=== PATIENT | female | born 1930 ===

== ENCOUNTER 2019-12-10 03:25 | Observation (INO) ==
[2019-12-10] MEDS ORDERED: Naloxone 0.4 MG/ML INJ IVP PRN (05:10)
[2019-12-10] MEDS: Famotidine 20 MG TABLET PO SCH (20:28)
[2019-12-10] MEDS: lisinopriL 5 MG TABLET PO SCH (20:29)
[2019-12-10] MEDS: *HR* OxyCODONE/APAP 7.5/325 TABLET PO PRN (20:29)
[2019-12-11 00:56] LABS: Basophils % 0.2 %; Eosinophils # 0.1 K/mcL (0.0-0.6); Eosinophils % 1.1 %; Hematocrit 37.6 % (35.3-44.9); Immature Granulocytes % 0.2 % (0-4); Lymphocytes # 3.2 K/mcL (0.6-4.6); Lymphocytes % 34.2 %; Mean Corpuscular HGB Conc 31.9 g/dL (31.6-35.5); Mean Corpuscular Hemoglobin 29.5 pg (28.0-33.3); Mean Corpuscular Volume 92.4 fL (83.0-100.0); Mean Platelet Volume 8.6 fL (9.4-12.4); Monocytes # 0.8 K/mcL (0.0-1.3); Monocytes % 8.3 %; Neutrophils # 5.2 K/mcL (1.6-8.9); Platelet Count 151 K/mcL (140-400); Red Blood Count 4.07 M/mcL (3.82-4.97); Red Cell Distribution Width 11.9 % (11.5-14.5); White Blood Count 9.3 K/mcL (4.3-11.1)
[2019-12-11 01:16] LABS: Calcium 9.2 mg/dL (8.6-10.3); Potassium 4.4 mEq/L (3.5-5.1)
[2019-12-11] MEDS: *HR* OxyCODONE/APAP 7.5/325 TABLET PO PRN ×2 (04:13→15:15)
[2019-12-11] MEDS ORDERED: Loratadine 10 MG TABLET PO SCH (09:00)
[2019-12-11] MEDS ORDERED: Verapamil ER (24 HR) 240 MG TABLET.ER PO SCH (09:00)
[2019-12-11] MEDS: Famotidine 20 MG TABLET PO SCH (09:09)
[2019-12-11] MEDS: lisinopriL 5 MG TABLET PO SCH (09:10)
[2019-12-11 15:49] VITALS: BP 116/56
[2019-12-12] MEDS ORDERED: Famotidine 20 MG TABLET PO SCH (09:00)
== END 2019-12-11 17:51 | disposition home health service (06) ==
LOC: 3BNU
PROVIDERS: ADMIT Internal Medicine; ATTEND Internal Medicine

== ENCOUNTER 2020-05-27 09:17 | Inpatient (IN) ==
[2020-05-27] MEDS ORDERED: *HR* HYDROmorphone (PF) 1 MG/ML SYRINGE IVP ONE (09:50)
[2020-05-27] MEDS ORDERED: 0.9 % Sodium Chloride 500 ML IV ONE (09:52)
[2020-05-27 10:33] LABS: Basophils % 0.3 %; Eosinophils # 0.1 K/mcL (0.0-0.6); Eosinophils % 0.7 %; Hematocrit 37.2 % (35.3-44.9); Hemoglobin 11.8 g/dL (11.5-15.4); Immature Granulocytes % 0.2 % (0-4); Lymphocytes # 2.3 K/mcL (0.6-4.6); Lymphocytes % 25.2 %; Mean Corpuscular HGB Conc 31.7 g/dL (31.6-35.5); Mean Corpuscular Hemoglobin 29.7 pg (28.0-33.3); Mean Corpuscular Volume 93.7 fL (83.0-100.0); Mean Platelet Volume 9.1 fL (9.4-12.4); Monocytes # 0.7 K/mcL (0.0-1.3); Monocytes % 7.6 %; Neutrophils # 5.9 K/mcL (1.6-8.9); Platelet Count 143 K/mcL (140-400); Prothrombin Time 11.1 Seconds (9.4-12.1); Red Blood Count 3.97 M/mcL (3.82-4.97); Red Cell Distribution Width 12.4 % (11.5-14.5)
[2020-05-27 10:36] LABS: Activated Partial Thrombo Time 28.5 Seconds (26.0-36.0)
[2020-05-27 10:53] LABS: Albumin 4.4 g/dL (3.5-5.7); Albumin/Globulin Ratio 1.8 (1.1-2.2); Bilirubin,Total 0.7 mg/dL (0.3-1.0); Calcium 9.6 mg/dL (8.6-10.3); Globulin 2.4 g/dL (2.4-3.5); Potassium 4.6 mEq/L (3.5-5.1); Total Protein 6.8 g/dL (6.4-8.9); Troponin I 0.04 ng/mL (< 0.04)
[2020-05-27] MEDS ORDERED: Nitroglycerin 1 INCH/GM PACKET TP ONE (10:57)
[2020-05-27 11:23] LABS: Bacteria,Urine Many per hpf (None-Few); Bilirubin,Urine Negative (Negative); Blood,Urine Trace (Negative); Clarity,Urine Clear (Clear); Color,Urine Light-Yellow (Yellow); Glucose,Urine (UA) Normal (Normal); Hyaline Casts,Urine Few per lpf (None Seen); Ketones,Urine Negative (Negative); Leukocyte Esterase,Urine Trace (Negative); Mucus,Urine Few per lpf (None-Few); Nitrite,Urine Positive (Negative); Protein,Urine Trace mg/dL (Neg-Trace); RBC,Urine 0-3 per hpf (0-3); Specific Gravity,Urine 1.025 (1.010-1.025); Squamous Epithelial Cell,Urine Few per hpf (None-Few); Urobilinogen,Urine Normal (Normal); WBC,Urine 0-3 per hpf (0-3)
[2020-05-27] MEDS: Aspirin 81 MG TAB.CHEW PO SCH (11:42)
[2020-05-27] MEDS ORDERED: Naloxone 0.4 MG/ML INJ IVP PRN (12:52)
[2020-05-27] MEDS ORDERED: Perflutren Lipid Microsphere 1.3 ML in 0.9 % Sodium Chloride 8.7 ML IVP PRN (12:55)
[2020-05-27] MEDS ORDERED: 0.9 % Sodium Chloride 1,000 ML IVC SCH (13:45)
[2020-05-27] MEDS: cefTRIAXone 1,000 MG in Water for inj. (sterile) 10 ML IVP SCH (16:50)
[2020-05-27] MEDS: *HR* Heparin 5,000 UNIT/ML VIAL SQ SCH (16:51)
[2020-05-27] MEDS: *HR* HYDROcodone/Acet 7.5/325 mg TABLET PO PRN (20:42)
[2020-05-27] MEDS: Rivastigmine Tartrate (oral) 1.5 MG CAPSULE PO SCH (20:42)
[2020-05-27] MEDS: lisinopriL 5 MG TABLET PO SCH (20:43)
[2020-05-27] MEDS: Famotidine 20 MG TABLET PO SCH (20:43)
[2020-05-28 03:12] LABS: Calcium 8.7 mg/dL (8.6-10.3); Phosphorous 3.4 mg/dL (2.7-4.5); Potassium 4.6 mEq/L (3.5-5.1)
[2020-05-28] MEDS: *HR* Heparin 5,000 UNIT/ML VIAL SQ SCH ×2 (05:22→17:02)
[2020-05-28] MEDS: *HR* HYDROcodone/Acet 7.5/325 mg TABLET PO PRN ×3 (08:21→23:08)
[2020-05-28] MEDS: Famotidine 20 MG TABLET PO SCH ×2 (08:21→21:39)
[2020-05-28] MEDS: Verapamil ER (24 HR) 240 MG TABLET.ER PO SCH (08:21)
[2020-05-28] MEDS: Aspirin 81 MG TAB.CHEW PO SCH (08:21)
[2020-05-28] MEDS: lisinopriL 5 MG TABLET PO SCH (08:22)
[2020-05-28] MEDS: Rivastigmine Tartrate (oral) 1.5 MG CAPSULE PO SCH ×2 (08:22→21:39)
[2020-05-28] MEDS: Loratadine 10 MG TABLET PO SCH (08:22)
[2020-05-28] MEDS: cefTRIAXone 1,000 MG in Water for inj. (sterile) 10 ML IVP SCH (08:23)
[2020-05-28] MEDS ORDERED: Isovue-370 500 ML BOTTLE IVP ONE (09:21)
[2020-05-28] MEDS ORDERED: 0.9 % Sodium Chloride 1,000 ML IVC SCH (12:30)
[2020-05-29 03:47] LABS: Basophils % 0.6 %; Eosinophils # 0.2 K/mcL (0.0-0.6); Eosinophils % 2.4 %; Hematocrit 32.7 % (35.3-44.9); Hemoglobin 10.4 g/dL (11.5-15.4); Immature Granulocytes % 0.2 % (0-4); Lymphocytes # 2.6 K/mcL (0.6-4.6); Mean Corpuscular HGB Conc 31.8 g/dL (31.6-35.5); Mean Corpuscular Hemoglobin 30.3 pg (28.0-33.3); Mean Corpuscular Volume 95.3 fL (83.0-100.0); Monocytes # 0.5 K/mcL (0.0-1.3); Monocytes % 7.9 %; Neutrophils # 3.2 K/mcL (1.6-8.9); Platelet Count 129 K/mcL (140-400); Red Blood Count 3.43 M/mcL (3.82-4.97); Red Cell Distribution Width 12.3 % (11.5-14.5); Segmented Neutrophils % 48.9 %; White Blood Count 6.6 K/mcL (4.3-11.1)
[2020-05-29 04:05] LABS: Calcium 8.7 mg/dL (8.6-10.3); Potassium 4.7 mEq/L (3.5-5.1)
[2020-05-29] MEDS: *HR* Heparin 5,000 UNIT/ML VIAL SQ SCH ×2 (06:37→16:19)
[2020-05-29] MEDS: Aspirin 81 MG TAB.CHEW PO SCH (08:56)
[2020-05-29] MEDS: Rivastigmine Tartrate (oral) 1.5 MG CAPSULE PO SCH ×2 (08:57→20:30)
[2020-05-29] MEDS: Famotidine 20 MG TABLET PO SCH ×2 (08:57→20:30)
[2020-05-29] MEDS: cefTRIAXone 1,000 MG in Water for inj. (sterile) 10 ML IVP SCH (08:58)
[2020-05-29] MEDS: Loratadine 10 MG TABLET PO SCH (09:02)
[2020-05-29] MEDS: Verapamil ER (24 HR) 240 MG TABLET.ER PO SCH (09:02)
[2020-05-29] MEDS: *HR* HYDROcodone/Acet 7.5/325 mg TABLET PO PRN ×3 (10:04→23:16)
[2020-05-29] MEDS: lisinopriL 5 MG TABLET PO SCH (10:07)
[2020-05-30] MEDS ORDERED: Morphine Sulfate 2 MG/ML SYRINGE IVP ONE (02:17)
[2020-05-30] MEDS: *HR* Heparin 5,000 UNIT/ML VIAL SQ SCH ×2 (04:48→16:27)
[2020-05-30] MEDS: *HR* HYDROcodone/Acet 7.5/325 mg TABLET PO PRN ×2 (05:33→19:32)
[2020-05-30] MEDS: cefTRIAXone 1,000 MG in Water for inj. (sterile) 10 ML IVP SCH (08:29)
[2020-05-30] MEDS: Aspirin 81 MG TAB.CHEW PO SCH (08:30)
[2020-05-30] MEDS: Famotidine 20 MG TABLET PO SCH ×2 (08:30→20:12)
[2020-05-30] MEDS: Rivastigmine Tartrate (oral) 1.5 MG CAPSULE PO SCH ×2 (08:30→20:12)
[2020-05-30] MEDS: Loratadine 10 MG TABLET PO SCH (08:30)
[2020-05-30] MEDS: lisinopriL 5 MG TABLET PO SCH (08:30)
[2020-05-30] MEDS ORDERED: FLU Vac QV 20-21 (6Month+)/PF 0.5 ML SYRINGE IM ONE (09:47)
[2020-05-31] MEDS: *HR* HYDROcodone/Acet 7.5/325 mg TABLET PO PRN (01:35)
[2020-05-31] MEDS: *HR* Heparin 5,000 UNIT/ML VIAL SQ SCH (05:09)
[2020-05-31] MEDS: cefTRIAXone 1,000 MG in Water for inj. (sterile) 10 ML IVP SCH (08:24)
[2020-05-31] MEDS: Famotidine 20 MG TABLET PO SCH (08:24)
[2020-05-31] MEDS: Aspirin 81 MG TAB.CHEW PO SCH (08:25)
[2020-05-31] MEDS: Loratadine 10 MG TABLET PO SCH (08:25)
[2020-05-31] MEDS: Rivastigmine Tartrate (oral) 1.5 MG CAPSULE PO SCH (08:25)
[2020-05-31] MEDS: lisinopriL 5 MG TABLET PO SCH (08:25)
[2020-05-31] MEDS: Verapamil ER (24 HR) 240 MG TABLET.ER PO SCH (08:25)
[2020-05-31 09:46] VITALS: BP 190/86
== END 2020-05-31 10:08 | DRG 183 ==
LOC: EMEROOARM 09:17 → 3ANU 09:17 → SUATTDRO 05-28 14:34
PROVIDERS: ADMIT Internal Medicine; ATTEND Internal Medicine